=== PATIENT | male | born 2000 | race American Indian/Alaskan Native ===

== ENCOUNTER 2022-11-13 20:14 | Emergency (ER) | payer OTHER ==
[~2022-11-13] VITALS: Ht 175.3 cm; Wt 79.4 kg
[2022-11-13 20:30] LABS: BASOPHILS 0.5 % (0-2); EOSINOPHILS 0.1 % (0-6); HEMATOCRIT 45.3 % (35.0-50.0); HEMOGLOBIN 15.3 g/dL (12.0-18.0); LYMPHOCYTES 29.5 % (24-44); MCH 30.2 (27-36); MCHC 33.7 g/dl (30-36); MCV 89.7 fl (81-99); NEUTROPHILS 64.9 % (39-80); PLATELET COUNT 340 K/uL (140-440); RBC 5.05 M/ul (4.3-5.7); RDW 15.4 (10.5-15.0)
[2022-11-13 20:36] LABS: BILIRUBIN, URINE NEGATIVE (negative); BLOOD/HGB, URINE NEGATIVE (Negative); KETONE, URINE TRACE (Negative); LEUK ESTERASE, URINE NEGATIVE (negative); NITRITE, URINE NEGATIVE (negative); PH, URINE 5.5 (5-7)
[2022-11-13 20:40] LABS: AMPHETAMINES, UR NEGATIVE (NEGATIVE); BARBITURATES, UR NEGATIVE (NEGATIVE); BENZODIAZEPINES, UR NEGATIVE (NEGATIVE); BUPRENORPHINE,UR NEGATIVE (NEGATIVE); COCAINE, UR NEGATIVE (NEGATIVE); MARIJUANA (THC), UR NEGATIVE (NEGATIVE); MDMA, UR NEGATIVE (NEGATIVE); METHADONE, UR NEGATIVE (NEGATIVE); METHAMPHETAMINE, UR NEGATIVE (NEGATIVE); OPIATES, UR NEGATIVE (NEGATIVE); OXYCODONE, UR NEGATIVE (NEGATIVE); PHENCYCLIDINE, UR NEGATIVE (NEGATIVE); TRICYCLIC ANTIDEPRESSANT, UR NEGATIVE (NEGATIVE)
[2022-11-13 20:41] LABS: EPITHELIAL CELLS, URINE SQUAMOUS 1+ /lpf (0-1+)
[2022-11-13 20:42] LABS: BACTERIA, URINE RARE /hpf (negative); CASTS, URINE NONE SEEN \\lpf; CRYSTALS, URINE NONE SEEN (0-1+); RED BLOOD CELLS, URINE 0-1 /hpf (0-5); REFLEX CULTURE, URINE No (No)
[2022-11-13 20:48] LABS: ALBUMIN/GLOBULIN RATIO 1.05 (1.1-2.4); ANION GAP 14.5 (7-21); BILIRUBIN, TOTAL 0.8 ng/dL (0.2-1.0); BUN/CREATININE RATIO 7.77 (6.0-28.6); CALCIUM 8.1 mg/dL (8.5-10.1); CREATININE, SERUM 0.9 mg/dL (0.70-1.30); POTASSIUM 3.5 mmol/L (3.5-5.1); PROTEIN, TOTAL 7.8 g/dL (6.4-8.2)
[2022-11-13 21:06] LABS: ABO O; ANTIBODY SCREEN NEGATIVE; RH POSITIVE
[2022-11-13] MEDS ORDERED: HYDROCODON-ACE1 EA10 PO (22:10)
[2022-11-13] MEDS ORDERED: AMOX TR-K CLV1 EAC1 PO (22:10)
[2022-11-13 22:20] LABS: INFLUENZA B NAA NEGATIVE (NEGATIVE); RESPIRATORY SYNCYTIAL VIR NAA NEGATIVE (NEGATIVE)
[2022-11-14 05:20] VITALS: BP 111/69
== END 2022-11-14 05:20 | disposition home or self-care (01) ==
LOC: ED 20:14
PROVIDERS: Family Medicine
DX: S02.31XA Fracture of orbital floor, right side, initial encounter for closed fracture (principal); S02.40CA Maxillary fracture, right side, initial encounter for closed fracture; S02.2XXA Fracture of nasal bones, initial encounter for closed fracture; Z20.822 Contact with and (suspected) exposure to COVID-19; Z23 Encounter for immunization; Y04.0XXA Assault by unarmed brawl or fight, initial encounter; Y92.89 Other specified places as the place of occurrence of the external cause
CPT/HCPCS: 36415; 70450; 70486; 71260; 72125; 80053; 81001; 85025; 86850; 86900; 86901; 87502; 90715; G0480; J2405; J7121; U0002